=== PATIENT | female | born 1995 | race Caucasian/White ===

== ENCOUNTER 2017-03-05 10:36 | Emergency (ER) | payer MEDICAID ==
--- NOTE | 2017-03-05 10:57 | ER Document Report ---
ED GI/ - General Chief Complaint: Vag Bleeding, +preg <12wks Stated Complaint: VAGINAL BLEEDING Time Seen by Provider: 03/05/17 10:48 Notes: Patient says she is approximately 8-1/2 weeks , LMP January 05, and she is having some spotting this morning. Also having some cramping. Patient has not had any care, including an ultrasound. Patient is 3, para 2, A0. No history of abdominal surgeries. No history of major illness. On no regular prescription medications. Non-smoker TRAVEL OUTSIDE OF THE [place] IN LAST 30 DAYS: No - Related Data Allergies/Adverse Reactions: No Known Allergies Allergy (Verified 03/05/17 10:44) Past Medical History - Social History Smoking Status: Unknown if Ever Smoked Cigarette use (# per day): No Family History: Reviewed & Not Pertinent - Medical History Medical History: Negative Surgical Hx: Negative Past Surgical History: Reports: None - Immunizations Hx Diphtheria, Pertussis, Tetanus Vaccination: Yes Review of Systems - Review of Systems Notes: REVIEW OF SYSTEMS: CONSTITUTIONAL : Denies fever. EENT: Denies eye, ear, nose or mouth or throat pain or other symptoms. CARDIOVASCULAR: Denies chest pain. RESPIRATORY: Denies cough, chest congestion, or shortness of breath. GASTROINTESTINAL: Patient has some abdominal cramping, but no other gastrointestinal symptoms such as vomiting or diarrhea. GENITOURINARY: Denies difficulty or painful urinating, urinary frequency, blood in urine. See HPI. MUSCULOSKELETAL: Denies back or neck pain. Denies joint pain or swelling. SKIN: Denies rash or skin lesions. NEUROLOGICAL: Denies LOC or altered mental status. Denies headache. Denies sensory loss or motor deficits. ALL OTHER SYSTEMS REVIEWED AND NEGATIVE. Physical Exam - Vital signs Vitals: Temp Pulse Resp BP Pulse Ox 97.4 F 70 14 121/66 100 03/05/17 10:41 03/05/17 10:41 03/05/17 10:41 03/05/17 10:41 03/05/17 10:41 Interpretation: Normal - Notes Notes: PHYSICAL EXAMINATION: GENERAL: Well-appearing, in no acute distress. HEAD: Atraumatic, normocephalic. EYES: Pupils equal round and reactive to light, extraocular movements intact. LUNGS: Breath sounds clear and equal bilaterally. HEART: Regular rate and rhythm without murmurs. ABDOMEN: Soft, nontender. No guarding or rebound. BACK: No tenderness throughout entire back. SKIN: Warm, dry, no rashes. Course - Vital Signs Vital signs: Temp Pulse Resp BP Pulse Ox 97.4 F 70 14 121/66 100 03/05/17 10:41 03/05/17 10:41 03/05/17 10:41 03/05/17 10:41 03/05/17 10:41 - Diagnostic Test Radiology reviewed: Image reviewed, Reports reviewed - Ultrasound shows a living 8 week fetus with heartbeat in the 170s. There is a moderate size subchorionic hemorrhage present. Discharge - Discharge Clinical Impression: Vaginal bleeding, Threatened miscarriage in early Qualifiers: Weeks of gestation: 8 weeks Qualified Code(s): Z3A.08 - 8 weeks gestation of Condition: Stable Disposition: HOME, SELF-CARE Additional Instructions: : You are . care is best started as early in as possible. If you're unsure about continuing this , you should discuss this with your physician or with planting material remover at [facility]. You should take only medications approved by your physician. Acetaminophen can safely be taken for minor pains. As a rule, medication for chronic conditions such as asthma or seizures can safely be continued. You should discuss with the physician every medicine you take. Any regular exercise program can be continued. Talk to your physician, however, before engaging in competitive or demanding sports. Alcohol, smoking, and "street drugs" are dangerous to your baby. Cocaine is especially dangerous. Don't use any illicit drugs! BLEEDING DURING EARLY : You have been evaluated for passing blood while . While we take this symptom very seriously, most women with your degree of bleeding will go on to have a perfectly normal baby. At this time, there is no indication that a miscarriage will occur. (A miscarriage occurs when the fetus is abnormal. There is no medicine or treatment to prevent it.) A more serious cause of bleeding is tubal (or ectopic) . An ultrasound usually can show whether the is in the uterus or in the tube. Sometimes in early , no fetus is seen. In this case, careful follow-up, including repeat blood tests and repeat ultrasound, is necessary. Do not douche or have sex for at least a week, or until OK'd by the doctor. Don't use tampons. Call the doctor or return for re-examination if there is an increase in bleeding or cramping, extreme weakness, fainting, new abdominal pain, fever, or passage of tissue. THREATENED MISCARRIAGE: You have been evaluated for a possible miscarriage. At this time, there is no indication that a miscarriage will occur. Most women with your symptoms will go on to have a perfectly normal baby. However, careful observation will be necessary. A miscarriage occurs when the fetus is abnormal. There is no medicine or treatment for it. You should rest in bed until the symptoms have resolved. Do not douche or have sex for at least a week, or until OK'd by the doctor. Call the doctor or return for re-examination if there is an increase in bleeding or cramping, or passage of tissue. FOLLOW-UP CARE: If you have been referred to a physician for follow-up care, call the physician s office for an appointment as you were instructed or within the next two days. If you experience worsening or a significant change in your symptoms (very heavy bleeding with large clots of blood, passage of tissue, more severe abdominal / pelvic pain or cramping, feeling faint or severe weakness, fever, etc.), notify the physician immediately or return to the Emergency Department at any time for re-evaluation. OBSTETRIC-GYNECOLOGIC (OB-BIOFUELS MANAGER) PHYSICIANS IN [place]: [facility] [address] [place] [address] [phone] Referrals: [facility] [Provider Group] - Follow up as needed
--- NOTE | 2017-03-05 11:47 | RADIOLOGY REPORT (SQ) ---
EXAM DESCRIPTION: U/S OB TRANSVAG W/DOPPLER COMPLETED DATE/TIME: 03/05/2017 11:31 am REASON FOR STUDY: LMP January 05, spotting today COMPARISON: None. TECHNIQUE: Endovaginal static and realtime grayscale images acquired of the pelvis. Additional selec lucas spectral and color Doppler images recorded. All images stored on PACs. bHCG: Not available LIMITATIONS: Adnexa not visualized due to bowel gas FINDINGS: FETUS: Living intrauterine . EGA: 8 weeks 2 days by crown-rump length JUAN: 10/13/2017 FHR: 173 beats per minute. SUBCHORIONIC BLEED: Yes SIZE OF BLEED: Moderate size subchorionic hemorrhage along the lower uterine segment, 3 x 1 cm in siz e UTERUS: No masses. No anomalies. Uterus is 11 x 7 x 7 cm in size. CERVICAL LENGTH: 4.2 cm. Closed. RIGHT ADNEXA: Not visualized due to adnexal gas. LEFT ADNEXA: Not visualized due to adnexal gas FREE FLUID: None. OTHER: No other significant finding. IMPRESSION: LIVING INTRAUTERINE . EGA 8 weeks 2 days by crown-rump length Moderate size subchorionic hemorrhage, 3 x 1 cm in size. Trimester of : First - 0 to 13 weeks. TECHNICAL DOCUMENTATION: JOB ID: [id number] [employer]- All Rights Reserved
[2017-03-05 12:17] VITALS: BP 114/61
== END 2017-03-05 12:13 | disposition home or self-care (01) ==
LOC: ER 10:36
DX: O20.0 Threatened abortion (principal); Z3A.08 8 weeks gestation of pregnancy
CPT/HCPCS: 36415; 76817; 84702; 86900; 86901; 93976; 99284

== ENCOUNTER 2019-12-01 19:20 | Emergency (ER) | payer SELFPAY ==
--- NOTE | 2019-12-01 20:27 | ER Document Report ---
ED Medical Screen (RME) - General Chief Complaint: Vag Bleeding, +preg <12wks Stated Complaint: BLEEDING/CRAMPING Notes: 24-year-old female A0 presenting today with vaginal bleeding. States that her last menstrual period was in October. Has had multiple at home tests. She had a Mirena taken out in June. 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 Is taking vitamins. Denies any cramping at this time. No fevers, chills, back pain, pain with urination or additional symptoms. She states with her first she had a subchorionic bleed early in her . PE: Alert, oriented, lungs are clear to auscultation bilaterally, heart regular rate rhythm. Abdomen soft nontender I have greeted and performed a rapid initial assessment of this patient. A comprehesive ED assessment and evaluation of this patient, analysis of test results and completion of the medical decision-making process will be conducted by additional ED providers. TRAVEL OUTSIDE OF THE [place] IN LAST 30 DAYS: No - Related Data Allergies/Adverse Reactions: No Known Allergies Allergy (Verified 12/01/19 20:05) Past Medical History - Social History Frequency of alcohol use: None Drug Abuse: None Renal/ Medical History: Denies: Hx Peritoneal Dialysis - Immunizations Hx Diphtheria, Pertussis, Tetanus Vaccination: Yes Physical Exam - Vital signs Vitals: Temp Pulse Resp BP Pulse Ox 98.4 F 74 16 99/67 L 100 12/01/19 19:25 12/01/19 19:25 12/01/19 19:25 12/01/19 19:25 12/01/19 19:25 Course - Vital Signs Vital signs: Temp Pulse Resp BP Pulse Ox 98.4 F 74 16 99/67 L 100 12/01/19 20:07 12/01/19 19:25 12/01/19 19:25 12/01/19 19:25 12/01/19 19:25
[2019-12-01 20:55] LABS: ABSOLUTE BASOPHILS # (AUTO) 0.1 10^3/uL (0.0-0.2); ABSOLUTE EOSINOPHILS # (AUTO) 0.1 10^3/uL (0.0-0.6); ABSOLUTE LYMPHOCYTES (AUTO) 2.2 10^3/uL (0.5-4.7); ABSOLUTE MONOCYTES (AUTO) 0.8 10^3/uL (0.1-1.4); ABSOLUTE NEUT (AUTO) 5.4 10^3/uL (1.7-8.2); BASOPHILS % (AUTO) 0.8 % (0-2); EOSINOPHILS % (AUTO) 0.9 % (0-6); HEMATOCRIT 41.8 % (36.0-47.0); HEMOGLOBIN 14.3 g/dL (12.0-15.5); LYMPHOCYTES % (AUTO) 25.4 % (13-45); MEAN CORPUSCULAR HGB CONC 34.2 g/dL (32.0-36.0); MEAN CORPUSCULAR VOLUME 85 fl (80-97); MONOCYTES % (AUTO) 9.7 % (3-13); PLATELET COUNT 319 10^3/uL (150-450); RED BLOOD COUNT 4.94 10^6/uL (3.72-5.28); RED CELL DISTRIBUTION WIDTH 12.9 % (11.5-14.0); SEGMENTED NEUTROPHILS % (AUTO) 63.2 % (42-78); TOTAL CELLS COUNTED % (AUTO) 100 %; WHITE BLOOD COUNT 8.5 10^3/uL (4.0-10.5)
[2019-12-01 21:12] LABS: ALBUMIN 4.5 g/dL (3.5-5.0); ALKALINE PHOSPHATASE 50 U/L (38-126); ANION GAP 8 (5-19); ASPARTATE AMINO TRANSFERASE 21 U/L (14-36); BILIRUBIN,DIRECT 0.1 mg/dL (0.0-0.4); BILIRUBIN,TOTAL 0.4 mg/dL (0.2-1.3); BLOOD UREA NITROGEN 11 mg/dL (7-20); CALCIUM 9.6 mg/dL (8.4-10.2); CARBON DIOXIDE 27 mmol/L (22-30); CHLORIDE 105 mmol/L (98-107); GLUCOSE 99 mg/dL (75-110); POTASSIUM 4.3 mmol/L (3.6-5.0); TOTAL PROTEIN 7.3 g/dL (6.3-8.2)
[2019-12-01 21:21] LABS: APPEARANCE,URINE CLEAR; BILIRUBIN,URINE NEGATIVE (NEGATIVE); COLOR,URINE YELLOW; GLUCOSE, URINE NEGATIVE (NEGATIVE); KETONES,URINE NEGATIVE (NEGATIVE); LEUKOCYTE ESTERASE,URINE NEGATIVE (NEGATIVE); NITRITE,URINE NEGATIVE (NEGATIVE); PROTEIN,URINE NEGATIVE (NEGATIVE); URINE SPECIFIC GRAVITY 1.023; UROBILINOGEN,URINE NEGATIVE mg/dL (<2.0)
--- NOTE | 2019-12-01 22:37 | RADIOLOGY REPORT (SQ) ---
EXAM DESCRIPTION: US TRANSVAGINAL COMPLETED DATE/TME: 12/01/2019 20:15 CLINICAL HISTORY: 24 years, Female, vaginal bleeding COMPARISON: None. TECHNIQUE: Emergent ultrasound LIMITATIONS: None. FINDINGS: The uterus measures 10.3 x 5.7 x 5.6 cm. The myometrium is homogenous. The endometrium measures 10 mm in thickness. There is no intrauterine gestational sac at this time. Trace of fluid in the endometrial canal. The right ovary is not well seen likely due to its position in the pelvis. Left ovary measures 2.5 x 2.1 cm. Normal flow to left ovary. No adnexal cyst or mass. No free fluid IMPRESSION: There is no intrauterine gestational sac at this time. Correlate with beta hCG levels. Ectopic not excluded based on this exam copyright 2011 [employer]- All Rights Reserved
--- NOTE | 2019-12-01 22:57 | ER Document Report ---
Entered by EVANGELINA SAENZ SCRIBE 12/01/19 [id number] Acting as scribe for:RADHA SMITH IV, MD ED GI/ - General Chief Complaint: Vag Bleeding, +preg <12wks Stated Complaint: BLEEDING/CRAMPING Time Seen by Provider: 12/01/19 22:06 Mode of Arrival: Ambulatory Information source: Patient Notes: This 24 year old female patient, A0, presents to the ED today with co mplaints of vaginal bleeding that started today after sexual intercourse. Patient states that her she had a positive home test about x2 weeks ago, but has not had confirmation via U/S yet. LMP was in October. Denies nausea, vomiting, diarrhea, flank pain, vaginal discharge, decreased PO intake, or any urinary symptoms. Patient also mentions a headache behind both eyes for the past week, no relief with Tylenol. She notes that she had a headache up until her 2nd trimester with her last . TRAVEL OUTSIDE OF THE [place] IN LAST 30 DAYS: No - Related Data Allergies/Adverse Reactions: No Known Allergies Allergy (Verified 12/01/19 20:05) Past Medical History - General Information source: Patient - Social History Smoking Status: Never Smoker Cigarette use (# per day): No Chew tobacco use (# tins/day): No Smoking Education Provided: No Frequency of alcohol use: None Drug Abuse: None Lives with: Spouse/Significant other Family History: Reviewed & Not Pertinent Patient has suicidal ideation: No Patient has homicidal ideation: No - Immunizations Hx Diphtheria, Pertussis, Tetanus Vaccination: Yes Review of Systems - Review of Systems Constitutional: No symptoms reported EENT: No symptoms reported Cardiovascular: No symptoms reported Respiratory: No symptoms reported Gastrointestinal: See HPI. denies: Diarrhea, Nausea, Vomiting, Poor appetite, Poor fluid intake Genitourinary: See HPI. denies: Burning, Dysuria, Flank pain, Hematuria Female Genitourinary: See HPI, Last menstrual period - 1st/2nd week of October, . denies: Vaginal discharge, Vaginal bleeding Musculoskeletal: No symptoms reported Skin: No symptoms reported Hematologic/Lymphatic: No symptoms reported Neurological/Psychological: See HPI, Headaches -: Yes All other systems reviewed and negative Physical Exam - Vital signs Vitals: Temp Pulse Resp BP Pulse Ox 98.4 F 74 16 99/67 L 100 12/01/19 19:25 12/01/19 19:25 12/01/19 19:25 12/01/19 19:25 12/01/19 19:25 - General General appearance: Appears well, Alert In distress: None - HEENT Head: Normocephalic, Atraumatic Eyes: Normal Pupils: PERRL - Respiratory Respiratory status: No respiratory distress Chest status: Nontender Breath sounds: Normal Chest palpation: Normal - Cardiovascular Rhythm: Regular Heart sounds: Normal auscultation Murmur: No Friction rub: No Gallop: None auscultated - Abdominal Inspection: Normal Distension: No distension Bowel sounds: Normal Tenderness: Nontender - Abdomen soft Organomegaly: No organomegaly - Back Back: Normal, Nontender - Extremities General upper extremity: Normal inspection General lower extremity: Normal inspection - Neurological Neuro grossly intact: Yes Suzette Coma Scale Eye Opening: Spontaneous Suzette Coma Scale Verbal: Oriented Suzette Coma Scale Motor: Obeys Commands Suzette Coma Scale Total: 15 - Psychological Associated symptoms: Normal affect, Normal mood - Skin Skin Temperature: Warm Skin Moisture: Dry Skin Color: Normal Course - Re-evaluation Re-evalutation: 12/01/19 22:57 Results of ED MSE discussed with patient. All questions were answered prior to discharge. Patient was instructed to follow-up with [facility] where she is receiving her OB care at this time within 5 days to have a recheck quantitative hCG done. Patient was instructed to be on pelvic rest. Emergency signs and symptoms, reasons to return to the emergency department discussed with patient. - Vital Signs Vital signs: Temp Pulse Resp BP Pulse Ox 98.4 F 74 16 99/67 L 100 12/01/19 20:07 12/01/19 19:25 12/01/19 19:25 12/01/19 19:25 12/01/19 19:25 - Laboratory Result Diagrams: 12/01/19 20:44 12/01/19 20:44 Laboratory results interpreted by me: 12/01/19 12/01/19 20:44 20:44 Beta HCG, Quant 32.02 H Urine Blood SMALL H - Diagnostic Test Radiology reviewed: Reports reviewed Discharge - Discharge Clinical Impression: Early stage of , Vaginal bleeding Condition: Stable Disposition: HOME, SELF-CARE Additional Instructions: Return to the Emergency Department without delay if any worse. You have been instructed to be on pelvic rest until told otherwise by your EXAMINING CHAIR ASSEMBLER. This means no strenuous activity involving your pelvis. This also means no sexual intercourse. Follow-up with your EXAMINING CHAIR ASSEMBLER at [facility] within 5 days. Today's blood level is 32. You need to follow-up with the health department for a repeat check of your blood level to make sure it is increasing as would be expected to during a normal . HOME CARE INSTRUCTIONS & INFORMATION: Thank you for choosing us for your medical needs. We hope you're satisfied with the care you received. After you leave, you must properly care for your problem and, at the same time, observe its progress. Any condition can change. Some illnesses can change rapidly over hours or days. If your condition worsens, return to the Emergency Department or see your physician promptly. ABOUT YOUR X-RAYS AND EKG'S: If you had an EKG or X-rays taken, they have been read by the Emergency Physician. The X-rays and EKG's will also be read by a Radiologist or Manager Service Desk within 24 hours. If discrepancies are noted, you will be notified by telephone. Please be certain the ED has a correct telephone number & address where you can be reached. Also, realize that some fractures or abnormalities do not show up on initial X-rays. If your symptoms continue, see your physician. ABOUT YOUR LABORATORY TEST: If you had laboratory tests, the results have been reviewed by the Emergency Physician. Some test results (for example cultures) may not be available for several days. You will be contacted if any test result shows you need additional treatment. Please be certain the ED has a correct telephone number and address where you can be reached. ABOUT YOUR MEDICATIONS: You will receive instructions on how to take your medicine on the prescription label you receive. Additional information may be provided by the Pharmacy. If you have questions afterwards, call the ED for clarification or further instructions. Some prescribed medications may cause drowsiness. Do not perform tasks such as driving a car or operating machinery without consulting your Pharmacist. If you feel you need a refill of pain medication, your condition will need re-evaluation. Please do not call for a refill of any medication. ABOUT YOUR SIGNATURE: Signature of this document acknowledges to followin. Understanding that you received emergency treatment and that you may be released before al medical problems are known or treated. Please be certain the ED has a correct phone number & address where you can be reached. 2. Acknowledgement that you will arrange for follow-up care as recommended. 3. Authorization for the Emergency Physician to provide information to your follow-up Physician in order to maximize your care. AT ANY TIME, IF YOUR SYMPTOMS CHANGE SIGNIFICANTLY OR WORSEN OR YOU DEVELOP NEW SYMPTOMS, RETURN TO THE EMERGENCY DEPARTMENT IMMEDIATELY FOR RE-EVALUATION. OUR GOAL IS TO PROVIDE EXCELLENT MEDICAL CARE! WE HOPE THAT WE HAVE MET YOUR EXPECTATIONS DURING YOUR EMERGENCY DEPARTMENT VISIT AND THAT YOU FEEL YOU HAVE RECEIVED EXCELLENT CARE! I personally performed the services described in the documentation, reviewed and edited the documentation which was dictated to the scribe in my presence, and it accurately records my words and actions.
[2019-12-01 23:26] VITALS: BP 105/82
== END 2019-12-01 23:27 | disposition home or self-care (01) ==
LOC: ER 19:20
DX: O20.9 Hemorrhage in early pregnancy, unspecified (principal); O26.891 Other specified pregnancy related conditions, first trimester; R51 Headache; Z3A.01 Less than 8 weeks gestation of pregnancy; Z79.899 Other long term (current) drug therapy
CPT/HCPCS: 36415; 76817; 80053; 81001; 84702; 85025; 86900; 86901; 93976; 99284